=== PATIENT | male | born 2000 | race Caucasian/White ===

== ENCOUNTER 2023-11-02 14:34 | Emergency (ER) | payer OTHER ==
[2023-11-02 14:39] VITALS: BP 151/78; PULSE 97; RESP 20; TEMP 98.2
== END 2023-11-02 16:06 | disposition home or self-care (01) ==
LOC: JERFT 14:34
DX: S66.912A Strain of unspecified muscle, fascia and tendon at wrist and hand level, left hand, initial encounter (principal); M25.532 Pain in left wrist; M25.432 Effusion, left wrist; W01.0XXA Fall on same level from slipping, tripping and stumbling without subsequent striking against object, initial encounter; Y92.009 Unspecified place in unspecified non-institutional (private) residence as the place of occurrence of the external cause
CPT/HCPCS: 73110-TC-LT-FY; 73130-TC-LT-FY; 99283-25